=== PATIENT | male | born 1935 | race Hispanic/Latino ===

== ENCOUNTER 2018-01-01 01:47 | Observation (INO) | payer MEDICARE ==
[~2018-01-01] VITALS: Ht 167.6 cm; Wt 69.4 kg
[~2018-01-01 01:47] MED LIST: ASPI-1181 PO; DUTA0.5C17 PO; FENO145T37 PO; FLUT16H NASAL; GABA-531 PO; INSU10VI3 SQ; INSU3INS5 SQ; ISOS60TA4 PO; NITR0.4T50 SL; SIMV20TA6 PO; TIOT4MIS2 IH; TRAM50TA4 PO
[2018-01-01] MEDS ORDERED: NITROGLYCERIN 0.4 MG SL TAB SL ONE (02:00)
[2018-01-01] MEDS ORDERED: ASPIRIN 325 MG TABLET ONE (02:00)
[2018-01-01] MEDS ORDERED: HYDROXYZINE HCL 25 MG TABLET ONE (02:02)
[2018-01-01 02:21] LABS: BASOPHILS % (AUTO) 0.5 % (0.0-5.0); EOSINOPHILS % (AUTO) 4.9 % (0.0-8.0); HEMATOCRIT 35.3 % (42-54); LYMPHOCYTES % (AUTO) 41.5 % (21.0-51.0); MEAN CORPUSCULAR HEMOGLOBIN 33.9 pg (27.0-33.0); MEAN CORPUSCULAR HGB CONC 36.5 g/dL (32.0-36.0); MEAN CORPUSCULAR VOLUME 92.8 fL (79-99); MONOCYTES % (AUTO) 7.3 % (3.0-13.0); NEUTROPHILS % (AUTO) 45.8 % (40.0-77.0); PLATELET COUNT (AUTO) 130 K/uL (130-400); RED BLOOD CELL COUNT(AUTO) 3.81 MIL/uL (4.50-6.20); RED CELL DISTRIBUTION WIDTH 13.6 % (11.0-15.5); WHITE BLOOD COUNT (AUTO) 7.3 K/uL (4.8-10.8)
[2018-01-01 02:30] LABS: CREATININE 1.1 mg/dL (0.5-1.5); POTASSIUM 3.5 mmol/L (3.5-5.1)
[2018-01-01 02:34] LABS: INR 1.05 (0.85-1.15); PARTIAL THROMBOPLASTIN TIME 24.5 SEC (26.3-35.5)
[2018-01-01 02:42] LABS: B-TYPE NATRIURETIC PEPTIDE 47 pg/mL (0-100)
[2018-01-01 02:49] LABS: ALBUMIN 3.3 g/dL (3.5-5.0); BILIRUBIN,TOTAL 0.4 mg/dL (0.2-1.0); CREATINE KINASE MB 2.6 ng/mL (0.5-3.6); TOTAL PROTEIN, SERUM 7.6 g/dL (6.0-8.3)
[2018-01-01] MEDS ORDERED: ACETAMINOPHEN-CODEINE ELIXIR 5 ML UDCUP ONE (03:10)
[2018-01-01] MEDS ORDERED: DEXTROSE 50%-WATER 50 ML DISP.SYRIN IV PRN (05:45)
[2018-01-01] MEDS ORDERED: GLUCAGON 1MG KIT 1 MG ML IM PRN (05:45)
[2018-01-01] MEDS: NITROGLYCERIN 1GM/1 INCH PACKET TD SCH ×5 (06:00→23:52)
[2018-01-01] MEDS: INSULIN R NPO SSI SQ SCH ×3 (06:00→18:00)
[2018-01-01] MEDS: ASPIRIN 325 MG TABLET PO SCH (08:57)
[2018-01-01] MEDS: ENOXAPARIN SODIUM 40 MG/0.4 ML SYRINGE SQ SCH (08:58)
[2018-01-01 09:04] VITALS: BP 147/70
[2018-01-01 09:10] LABS: CREATINE KINASE MB 2.3 ng/mL (0.5-3.6); CREATINE KINASE, TOTAL 149 U/L (21-232); MYOGLOBIN 120 ng/mL (10-92); TROPONIN I < 0.04 ng/mL (0.00-0.06)
[2018-01-01] MEDS ORDERED: VIT1TABL81 PO (09:23)
[2018-01-01] MEDS ORDERED: LOSA50TA37 PO (09:23)
[2018-01-01] MEDS ORDERED: SERT25TA5 PO (09:23)
[2018-01-01] MEDS ORDERED: CYCL30DR OP (09:23)
[2018-01-01 11:29] VITALS: BP 121/59
[2018-01-01] MEDS ORDERED: TRAMADOL HCL 50 MG TABLET PO PRN (12:45)
[2018-01-01] MEDS ORDERED: NITROGLYCERIN 0.4 MG SL TAB SL SCH (12:45)
[2018-01-01] MEDS: KETOROLAC TROMETHAMINE 15MG/ML IV SCH (14:23)
[2018-01-01] MEDS: GABAPENTIN 300 MG CAPSULE PO SCH ×2 (14:24→21:35)
[2018-01-01 16:43] VITALS: BP 119/62
[2018-01-01] MEDS: IPRATROPIUM 0.5 MG/2.5 ML INH IH SCH ×2 (18:11→23:33)
[2018-01-01 19:25] VITALS: BP 138/67
[2018-01-01] MEDS ORDERED: FENOFIBRATE NANOCRYSTALLIZED 145 MG TAB PO SCH (21:00)
[2018-01-01] MEDS ORDERED: ISOSORBIDE MONO 60 MG TAB.SR PO SCH (21:00)
[2018-01-01] MEDS ORDERED: ATORVASTATIN CALCIUM 10 MG TABLET PO SCH (21:00)
[2018-01-01] MEDS ORDERED: INSULIN HUMULIN 70/30 100 UNIT/ML 3ML SQ SCH (21:00)
[2018-01-01 23:10] VITALS: BP 122/57
[2018-01-02 03:15] VITALS: BP 127/71
[2018-01-02] MEDS: INSULIN R NPO SSI SQ SCH ×3 (05:20→12:00)
[2018-01-02] MEDS: IPRATROPIUM 0.5 MG/2.5 ML INH IH SCH ×2 (06:13→11:12)
[2018-01-02] MEDS: NITROGLYCERIN 1GM/1 INCH PACKET TD SCH ×2 (07:08→12:37)
[2018-01-02] MEDS ORDERED: INSULIN HUMULIN 70/30 100 UNIT/ML 3ML SQ SCH (07:30)
[2018-01-02 07:56] VITALS: BP 108/55
[2018-01-02] MEDS ORDERED: ASPIRIN 81 MG EC TAB PO SCH (09:00)
[2018-01-02] MEDS ORDERED: FLUTICASONE PROPIONATE 50MCG/SPRAY 16 GM BOTTLE EN SCH (09:00)
[2018-01-02] MEDS ORDERED: **HM** DUTASTERIDE 0.5MG PO SCH (09:00)
[2018-01-02] MEDS ORDERED: VITAMIN B COMPLEX 1 CAPSULE PO SCH (09:00)
[2018-01-02] MEDS ORDERED: LOSARTAN 50 MG TABLET PO SCH (09:00)
[2018-01-02] MEDS ORDERED: SERTRALINE HCL 50 MG TABLET PO SCH (09:00)
[2018-01-02] MEDS ORDERED: CYCLOSPORINE OP SCH (09:00)
[2018-01-02] MEDS: KETOROLAC TROMETHAMINE 15MG/ML IV SCH (09:28)
[2018-01-02] MEDS: GABAPENTIN 300 MG CAPSULE PO SCH (09:34)
[2018-01-02] MEDS: ASPIRIN 325 MG TABLET PO SCH (09:35)
[2018-01-02] MEDS: ENOXAPARIN SODIUM 40 MG/0.4 ML SYRINGE SQ SCH (09:36)
[2018-01-02 12:16] VITALS: BP 113/56
== END 2018-01-02 15:11 | disposition home or self-care (01) ==
LOC: EDH 01:47 → EDHIP 03:14 → 4AH 07:54
PROVIDERS: ADMIT Family Medicine; ATTEND Family Medicine
DX: M94.0 Chondrocostal junction syndrome [Tietze] (principal); E11.40 Type 2 diabetes mellitus with diabetic neuropathy, unspecified; I25.10 Atherosclerotic heart disease of native coronary artery without angina pectoris; E78.5 Hyperlipidemia, unspecified; E11.51 Type 2 diabetes mellitus with diabetic peripheral angiopathy without gangrene; I10 Essential (primary) hypertension; G47.33 Obstructive sleep apnea (adult) (pediatric); J45.909 Unspecified asthma, uncomplicated; I87.2 Venous insufficiency (chronic) (peripheral); N40.0 Benign prostatic hyperplasia without lower urinary tract symptoms; Z79.4 Long term (current) use of insulin; F41.9 Anxiety disorder, unspecified; Z87.891 Personal history of nicotine dependence; Z79.82 Long term (current) use of aspirin
CPT/HCPCS: 36415; 71045; 80053; 82550 ×2; 82553 ×2; 82948 ×5; 83874 ×2; 83880; 84484 ×2; 85025; 85610; 85730; 93005; 94640 ×4; 94664; 96372 ×2; 96374; 99285; G0378 ×36; J1650 ×2; J1815 ×2; J1885

== ENCOUNTER 2019-10-06 10:50 | Inpatient (IN) | payer MEDICARE ==
[~2019-10-06] VITALS: Ht 167.6 cm; Wt 114.7 kg
[~2019-10-06 10:50] MED LIST changes: -ASPI-1181 PO; -DUTA0.5C17 PO; +DUTA0.5C18 PO; +FENO145T26 PO; -FENO145T37 PO; -FLUT16H NASAL; +GLYC10.7 IH; -INSU10VI3 SQ; -INSU3INS5 SQ; +LEVO500T2 PO; +LOSA50TA64 PO; -NITR0.4T50 SL; +SERT25TA5 PO; +SIMV-43 PO; -SIMV20TA6 PO; +TAMS-1 PO; -TIOT4MIS2 IH
[2019-10-06] MEDS ORDERED: IPRATROPIUM/ALBUTEROL SULFATE 3 ML SOLUTION IH ONE (11:20)
[2019-10-06 11:34] LABS: BASOPHILS % (AUTO) 0.6 % (0.0-5.0); EOSINOPHILS % (AUTO) 4.4 % (0.0-8.0); HEMATOCRIT 32.2 % (42-54); LYMPHOCYTES % (AUTO) 28.2 % (21.0-51.0); MEAN CORPUSCULAR HEMOGLOBIN 31.5 pg (27.0-33.0); MEAN CORPUSCULAR HGB CONC 33.9 g/dL (32.0-36.0); MEAN CORPUSCULAR VOLUME 93.1 fL (79-99); MONOCYTES % (AUTO) 7.8 % (3.0-13.0); NEUTROPHILS % (AUTO) 58.8 % (40.0-77.0); PLATELET COUNT (AUTO) 126 K/uL (130-400); RED BLOOD CELL COUNT(AUTO) 3.46 MIL/uL (4.50-6.20); RED CELL DISTRIBUTION WIDTH 12.7 % (11.0-15.5); WHITE BLOOD COUNT (AUTO) 4.8 K/uL (4.8-10.8)
[2019-10-06] MEDS ORDERED: BENZONATATE 100 MG CAPSULE PO ONE (11:40)
[2019-10-06 11:47] LABS: CREATININE 1.8 mg/dL (0.5-1.5); POTASSIUM 4.6 mmol/L (3.5-5.1)
[2019-10-06 11:52] LABS: ALBUMIN 2.7 g/dL (3.5-5.0); BILIRUBIN,TOTAL 0.3 mg/dL (0.2-1.0); TOTAL PROTEIN, SERUM 6.6 g/dL (6.0-8.3)
[2019-10-06 12:02] LABS: B-TYPE NATRIURETIC PEPTIDE 52 pg/mL (0-100)
[2019-10-06 12:10] LABS: INR 1.04 (0.85-1.15); PARTIAL THROMBOPLASTIN TIME 24.7 SEC (26.3-35.5); PROTHROMBIN TIME 11.2 SEC (9.6-11.6)
[2019-10-06] MEDS ORDERED: ONDANSETRON HCL 4 MG/2 ML VIAL IVP PRN (16:15)
[2019-10-06] MEDS ORDERED: HYDRALAZINE HCL 20 MG/ML VIAL IV PRN (16:15)
[2019-10-06] MEDS ORDERED: METHYLPREDNISOLONE SOD SUCC 40MG/ML 1ML IVP SCH ×2 (16:15→21:00)
[2019-10-06] MEDS ORDERED: LACTULOSE 20 GM/30 ML UDCUP PO PRN (16:15)
[2019-10-06] MEDS ORDERED: SODIUM CHLORIDE 0.9% 1000ML 1,000 ML IV SCH (16:15)
[2019-10-06] MEDS ORDERED: ACETAMINOPHEN-CODEINE 300/30MG TAB PO PRN (16:15)
[2019-10-06] MEDS ORDERED: ACETAMINOPHEN 325 MG TAB PO PRN (16:15)
[2019-10-06] MEDS ORDERED: GLUCAGON 1MG KIT 1 MG ML IM PRN (16:30)
[2019-10-06] MEDS ORDERED: LIDOCAINE HCL-MPF 1% 2ML VIAL IV PRN (16:30)
[2019-10-06] MEDS ORDERED: DEXTROSE 50%-WATER 50 ML DISP.SYRIN IV PRN (16:30)
[2019-10-06] MEDS ORDERED: POTASSIUM CHLORIDE 20 MEQ ERTAB PO PRN (16:30)
[2019-10-06] MEDS ORDERED: POTASSIUM CHLORIDE 20MEQ/100ML 100 ML IV PRN (16:30)
[2019-10-06] MEDS ORDERED: MAGNESIUM 2GM PREMIX 50ML 50 ML IV PRN (16:30)
[2019-10-06] MEDS ORDERED: POTASSIUM CHLORIDE 10% ELIXIR 20 MEQ/15 ML UDCUP PO PRN (16:30)
[2019-10-06] MEDS ORDERED: SODIUM CHLORIDE 0.9% 1000ML 1,000 ML IV ONE (18:20)
[2019-10-06] MEDS ORDERED: METHYLPREDNISOLONE SOD SUCC 40MG/ML 1ML ONE (18:23)
[2019-10-06] MEDS ORDERED: INSULIN HUMULIN R 100 UNIT/ML 3ML ONE (21:58)
[2019-10-06] MEDS ORDERED: ACETAMINOPHEN-CODEINE 300/30MG TAB ONE (23:12)
[2019-10-07] MEDS ORDERED: METHYLPREDNISOLONE SOD SUCC 40MG/ML 1ML ONE (03:33)
[2019-10-07] MEDS: IPRATROPIUM/ALBUTEROL SULFATE 3 ML SOLUTION IH PRN ×2 (05:17→19:05)
[2019-10-07 06:13] LABS: ALBUMIN 2.9 g/dL (3.5-5.0); BILIRUBIN,TOTAL 0.4 mg/dL (0.2-1.0); CREATININE 1.7 mg/dL (0.5-1.5); PHOSPHORUS 2.8 mg/dL (2.5-4.9); TOTAL PROTEIN, SERUM 7.5 g/dL (6.0-8.3)
[2019-10-07 06:49] LABS: POTASSIUM 5.4 mmol/L (3.5-5.1)
[2019-10-07] MEDS ORDERED: PANTOPRAZOLE 40 MG/VIAL IVP SCH (09:00)
[2019-10-07] MEDS ORDERED: HEPARIN SODIUM 5000UNIT/ML 1ML VIAL SQ SCH (09:00)
[2019-10-07] MEDS ORDERED: PANTOPRAZOLE SODIUM 40 MG TABLET.DR ONE (09:35)
[2019-10-07] MEDS ORDERED: HEPARIN SODIUM 5000UNIT/ML 1ML VIAL ONE (09:35)
[2019-10-07] MEDS ORDERED: INSULIN HUMULIN R 100 UNIT/ML 3ML ONE (11:48)
[2019-10-07] MEDS ORDERED: ASPI-1197 PO (11:51)
--- NOTE | 2019-10-07 14:00 | NUR ---
ADMISSION PT RECEIVED FROM ER VIA BED. A/O X 3. SOB ON EXERTION. UNABLE TO LIS FLAT. O2 NC @ 2L. DENIES CHEST PAIN OR DISCOMFORT. TELE: SR. DENIES N/V AND/OR DIARRHEA. (+) EDEMA BLE. PT INFORMED TO MAINTAIN BEDREST UNTIL EVAL BY PHYS THERAPY DONE. PT HAS HX OF WEARING BILATERAL ANKLE BRACES. FAMILY @ BEDSIDE. ORIENTED TO RM. INSTRUCTED TO CALL FOR ASSISTANCE. CALL NELIDA W/IN REACH.
[2019-10-07 14:04] LABS: HEMOGLOBIN A1C 8.8 % (4.0-6.0)
[2019-10-07 14:09] VITALS: BP 155/59
[2019-10-07] MEDS: INSULIN HUMULIN R 100 UNIT/ML 3ML SQ SCH ×3 (14:21→21:21)
[2019-10-07] MEDS: HEPARIN SODIUM 5000UNIT/ML 1ML VIAL SQ SCH ×2 (15:00→21:19)
[2019-10-07] MEDS ORDERED: FUROSEMIDE 10 MG/ML 4ML VIAL IV SCH (16:05)
[2019-10-07 16:21] VITALS: BP 156/77
--- NOTE | 2019-10-07 17:26 | NUR ---
INITIAL Patient lives with spouse. Emergency contact is son, Sherman Garcia, [phone]. No home health but does have [facility] but does not remember the name of the agency or number of hours he receives. SW attempted to contact family to obtain additional information but was unsuccessful. DME: cane, walker with seat, BPM, glucometer (uses insulin). Patient states he is able to complete ADL's independently and drives. PCP is Dr. Gallo Langford. Pharmacy is [facility] located on [address] in [place]. DCP is home. Addendum: 10/07/19 at 1729 by RAF EMANUEL Amended: Links added.
[2019-10-07 19:46] VITALS: BP 154/75
[2019-10-07] MEDS ORDERED: INSULIN GLARGINE 100 UNITS/ML 10 ML VIAL SQ SCH (21:00)
[2019-10-08] VITALS (7 sets, daily range): BP systolic 126–161; BP diastolic 53–73
[2019-10-08 04:22] LABS: BASOPHILS % (AUTO) 0.3 % (0.0-5.0); EOSINOPHILS % (AUTO) 0.7 % (0.0-8.0); HEMATOCRIT 33.6 % (42-54); LYMPHOCYTES % (AUTO) 19.9 % (21.0-51.0); MEAN CORPUSCULAR HEMOGLOBIN 30.6 pg (27.0-33.0); MEAN CORPUSCULAR VOLUME 92.6 fL (79-99); MONOCYTES % (AUTO) 6.9 % (3.0-13.0); NEUTROPHILS % (AUTO) 71.9 % (40.0-77.0); PLATELET COUNT (AUTO) 121 K/uL (130-400); RED BLOOD CELL COUNT(AUTO) 3.63 MIL/uL (4.50-6.20); RED CELL DISTRIBUTION WIDTH 12.5 % (11.0-15.5); WHITE BLOOD COUNT (AUTO) 7.4 K/uL (4.8-10.8)
[2019-10-08 04:32] LABS: CREATININE 1.3 mg/dL (0.5-1.5); POTASSIUM 4.4 mmol/L (3.5-5.1)
[2019-10-08] MEDS: INSULIN HUMULIN R 100 UNIT/ML 3ML SQ SCH ×4 (05:53→21:13)
[2019-10-08] MEDS: IPRATROPIUM/ALBUTEROL SULFATE 3 ML SOLUTION IH PRN ×2 (06:27→18:54)
[2019-10-08] MEDS: PREDNISONE 10 MG TABLET PO SCH (07:47)
[2019-10-08] MEDS: HEPARIN SODIUM 5000UNIT/ML 1ML VIAL SQ SCH ×2 (07:49→20:28)
[2019-10-08] MEDS: PANTOPRAZOLE SODIUM 40 MG TABLET.DR PO SCH (07:51)
--- NOTE | 2019-10-08 08:00 | NUR ---
AM ASSESSMENT PT LAYING IN BED, HOB ELEVATED 30 DEGREES, WATCHING TV. FAMILY @ BEDSIDE. A/O X 3. SOB ON EXERTION. NO DISTRESS NOTED. 02 NC @ 2L. DENIES CHEST PAIN OR DISCOMFORT. DENIES PALPITATIONS. TELE: SR. DENIES N/V AND/OR DIARRHEA. UP W/ASSISTANCE. & USE OF WALKER. WALKER @ BEDSIDE. INSTRUCTED TO CALL FOR ASSISTANCE. CALL NELIDA W/IN REACH.
[2019-10-08] MEDS ORDERED: INSULIN GLARGINE 100 UNITS/ML 10 ML VIAL SQ SCH (21:00)
[2019-10-09 04:23] VITALS: BP 116/53
[2019-10-09 04:50] LABS: HEMATOCRIT 36.4 % (42-54); MEAN CORPUSCULAR HEMOGLOBIN 31.2 pg (27.0-33.0); MEAN CORPUSCULAR HGB CONC 33.8 g/dL (32.0-36.0); MEAN CORPUSCULAR VOLUME 92.4 fL (79-99); PLATELET COUNT (AUTO) 131 K/uL (130-400); RED BLOOD CELL COUNT(AUTO) 3.94 MIL/uL (4.50-6.20); RED CELL DISTRIBUTION WIDTH 12.4 % (11.0-15.5); WHITE BLOOD COUNT (AUTO) 6.6 K/uL (4.8-10.8)
[2019-10-09 05:15] LABS: CREATININE 1.3 mg/dL (0.5-1.5); POTASSIUM 4.3 mmol/L (3.5-5.1)
[2019-10-09] MEDS: INSULIN HUMULIN R 100 UNIT/ML 3ML SQ SCH ×2 (05:56→11:41)
[2019-10-09 07:00] VITALS: BP 122/42
[2019-10-09] MEDS: IPRATROPIUM/ALBUTEROL SULFATE 3 ML SOLUTION IH PRN (07:01)
--- NOTE | 2019-10-09 07:45 | NUR ---
AM ASSESSMENT PT SITTING IN BED, RESTING. FAMILY @ BEDSIDE. A/O X 3. SOB ON EXERTION. NO DISTRESS NOTED. DENIES CHEST PAIN OR DISCOMFORT. DENIES PALPITATIONS. TELE: SR. DENIES N/V AND/OR DIARRHEA. UP W/WALKER & ASSISTANCE. PT PENDING TO DC HOME TODAY. INSTRUCTED TO CALL FOR ASSISTANCE. CALL NELIDA W/IN REACH.
[2019-10-09] MEDS ORDERED: PRED20TA3 PO (08:23)
[2019-10-09] MEDS: HEPARIN SODIUM 5000UNIT/ML 1ML VIAL SQ SCH (08:24)
[2019-10-09] MEDS: PREDNISONE 10 MG TABLET PO SCH (08:24)
[2019-10-09] MEDS: PANTOPRAZOLE SODIUM 40 MG TABLET.DR PO SCH (08:25)
[2019-10-09 11:00] VITALS: BP 140/64
--- NOTE | 2019-10-09 14:30 | NUR ---
DISCHARGE PT TO BE DC HOME TODAY. TELE RODRIGO REMOVED @ THIS TIME. IV DC'D @ THIS TIME.
--- NOTE | 2019-10-09 15:27 | NUR ---
DISCHARGE DISCHARGE INSTRUCTIONS GIVEN TO PT & FAMILY BY Paulina JONES RN.
--- NOTE | 2019-10-09 15:45 | NUR ---
DISCHARGE PT TAKEN TO PRIVATE VEHICLE VIA WC BY MYSELF, Calvin DESAI RN, ACCOMPANIED BY GRANDSON. NO DISTRESS NOTED.
== END 2019-10-09 15:45 | disposition home or self-care (01) | DRG 191 ==
LOC: EDH 10:50 → EDHIP 12:45 → OBSVTOIN 12:45 → EDHIP 10-07 10:16 → 2DH 10-07 13:40
PROVIDERS: ADMIT Internal Medicine Critical Care Medicine; ATTEND Internal Medicine Critical Care Medicine
PROC: 5A09357 Assistance with Respiratory Ventilation, Less than 24 Consecutive Hours, Continuous Positive Airway Pressure (ICD-10-PCS; principal; 2019-10-07)
PROC: 5A09357 Assistance with Respiratory Ventilation, Less than 24 Consecutive Hours, Continuous Positive Airway Pressure (ICD-10-PCS; 2019-10-08)
PROC: 5A09357 Assistance with Respiratory Ventilation, Less than 24 Consecutive Hours, Continuous Positive Airway Pressure (ICD-10-PCS; 2019-10-09)
DX: J44.1 Chronic obstructive pulmonary disease with (acute) exacerbation (principal); N17.9 Acute kidney failure, unspecified; E44.0 Moderate protein-calorie malnutrition; Z68.41 Body mass index [BMI] 40.0-44.9, adult; R60.0 Localized edema; N18.9 Chronic kidney disease, unspecified; E11.22 Type 2 diabetes mellitus with diabetic chronic kidney disease; I12.9 Hypertensive chronic kidney disease with stage 1 through stage 4 chronic kidney disease, or unspecified chronic kidney disease; E66.01 Morbid (severe) obesity due to excess calories; E78.5 Hyperlipidemia, unspecified; E87.5 Hyperkalemia; R09.1 Pleurisy; M19.90 Unspecified osteoarthritis, unspecified site; M21.372 Foot drop, left foot; Z79.82 Long term (current) use of aspirin; Z87.891 Personal history of nicotine dependence
CPT/HCPCS: 36415; 71045; 71250; 80048; 80053; 82550; 82948; 83036; 83735; 83880; 84100; 84132; 84484; 85025; 85027; 85610; 85730; 87071; 87077; 87186; 87205; 87804; 93005; 93970; 94640; 94660; 94664; 94760; 97039; C9113; G0378; J1644; J1815; J1940; J2920; J7030; J7512

== ENCOUNTER → 2020-01-28 | Outpatient (CLI) | payer MEDICARE | END | disposition home or self-care (01) | LOC: SHCH 08:31 | PROVIDERS: ATTEND Internal Medicine Cardiovascular Disease | DX: I87.2 Venous insufficiency (chronic) (peripheral) (principal) ==

== ENCOUNTER 2020-02-10 20:20 | Inpatient (IN) | payer MEDICARE ==
[~2020-02-10] VITALS: Ht 167.6 cm; Wt 105.2 kg
[~2020-02-10 20:20] MED LIST changes: +ASPI-1197 PO; -LEVO500T2 PO; +PRED20TA3 PO; -TRAM50TA4 PO
[2020-02-10] MEDS ORDERED: SODIUM CHLORIDE 0.9% 1000ML 1,000 ML IV ONE (21:50)
[2020-02-10] MEDS ORDERED: ONDANSETRON HCL 4 MG/2 ML VIAL ONE (21:52)
[2020-02-10] MEDS ORDERED: ACETAMINOPHEN EXTRA STRENGTH 500 MG TABLET ONE (21:52)
[2020-02-10 22:03] LABS: HEMATOCRIT 31.1 % (42-54); LYMPHOCYTES % (AUTO) 16.3 % (21.0-51.0); MEAN CORPUSCULAR HEMOGLOBIN 32.2 pg (27.0-33.0); MEAN CORPUSCULAR HGB CONC 35.4 g/dL (32.0-36.0); MEAN CORPUSCULAR VOLUME 90.9 fL (79-99); MONOCYTES % (AUTO) 10.4 % (3.0-13.0); NEUTROPHILS % (AUTO) 72.6 % (40.0-77.0); PLATELET COUNT (AUTO) 120 K/uL (130-400); RED BLOOD CELL COUNT(AUTO) 3.42 MIL/uL (4.50-6.20); RED CELL DISTRIBUTION WIDTH 12.3 % (11.0-15.5); WHITE BLOOD COUNT (AUTO) 3.1 K/uL (4.8-10.8)
[2020-02-10 22:17] LABS: CARBON DIOXIDE 22 mmol/L (21-32); CHLORIDE 98 mmol/L (101-111); CREATININE 1.8 mg/dL (0.5-1.5); GLOMERULAR FILTR. RATE CALC 39 mL/min (>60); GLUCOSE,RANDOM 282 mg/dL (70-105); INR 1.04 (0.85-1.15); PARTIAL THROMBOPLASTIN TIME 31.3 SEC (26.3-35.5); POTASSIUM 3.8 mmol/L (3.5-5.1); PROTHROMBIN TIME 11.2 SEC (9.6-11.6); SODIUM SERUM 135 mmol/L (136-145); UREA NITROGEN, BLOOD 38 mg/dL (7-18)
[2020-02-10 22:37] LABS: ALANINE AMINOTRANSFERASE 29 U/L (12-78); ALBUMIN 2.5 g/dL (3.5-5.0); ASPARTATE AMINOTRANSFERASE 62 U/L (10-37); BILIRUBIN,TOTAL 0.6 mg/dL (0.2-1.0); CREATINE KINASE, TOTAL 333 U/L (21-232); MYOGLOBIN 368 ng/mL (10-92); TOTAL PROTEIN, SERUM 7.1 g/dL (6.0-8.3); TROPONIN I < 0.04 ng/mL (0.00-0.06)
[2020-02-10] MEDS ORDERED: CEFTRIAXONE SODIUM 1 GM ONE (23:28)
[2020-02-10] MEDS ORDERED: AZITHROMYCIN 500MG+NS 250ML 250 ML IV ONE (23:28)
[2020-02-10] MEDS ORDERED: METHYLPREDNISOLONE SOD SUCC 40MG/ML 1ML IVP SCH (23:30)
[2020-02-10] MEDS: ENOXAPARIN SODIUM 30 MG/0.3 ML SQ SCH (23:45)
[2020-02-11] MEDS ORDERED: ENOXAPARIN SODIUM 30 MG/0.3 ML SQ ONE ×2 (04:26→20:03)
[2020-02-11] MEDS ORDERED: METHYLPREDNISOLONE SOD SUCC 40MG/ML 1ML ONE (04:26)
[2020-02-11 05:00] LABS: HEMATOCRIT 30.6 % (42-54); LYMPHOCYTES % (AUTO) 25.1 % (21.0-51.0); MEAN CORPUSCULAR HEMOGLOBIN 31.5 pg (27.0-33.0); MEAN CORPUSCULAR HGB CONC 34.3 g/dL (32.0-36.0); MEAN CORPUSCULAR VOLUME 91.9 fL (79-99); MONOCYTES % (AUTO) 8.9 % (3.0-13.0); NEUTROPHILS % (AUTO) 65.3 % (40.0-77.0); PLATELET COUNT (AUTO) 112 K/uL (130-400); RED BLOOD CELL COUNT(AUTO) 3.33 MIL/uL (4.50-6.20); RED CELL DISTRIBUTION WIDTH 12.5 % (11.0-15.5)
[2020-02-11 05:02] LABS: CREATININE 1.8 mg/dL (0.5-1.5); POTASSIUM 4.3 mmol/L (3.5-5.1)
[2020-02-11 05:03] LABS: ABG BASE EXCESS -2.5 mmol/L (-2.0-3.0); ABG HCO3 21.6 mmol/L (21.0-28.0); ABG PCO2 36 mmHg (35-48)
[2020-02-11] MEDS: AZITHROMYCIN 500MG+NS 250ML 250 ML IV SCH (09:00)
--- NOTE | 2020-02-11 13:14 | NUR ---
CHART CHECK COMPLETED. Pt IS AN 84 Y.O. MALE ADMITTED SECONDARY TO ACUTE RESPIRATORY FAILURE, HYPOXIA, AND PUI COVID. Pt WITH PAST MEDICAL HISTORY SIGNIFICANT FOR DM, HYPERTENSION, ARTHRITIS, GAIT INSTABILITY. Pt CURRENTLY WITH NO DIET ORDER. PLEASE REQUEST FORMAL SKILLED SPEECH/SWALLOW EVALUATION IF Pt PRESENTS WITH +S/S OF ASPIRATION OF DIFFICULTY SWALLOWING. Addendum: 02/11/20 at 1317 by JONG STYLES [facility] Amended: Links added.
[2020-02-11] MEDS ORDERED: HYDRALAZINE HCL 20 MG/ML VIAL IV PRN (16:30)
[2020-02-11] MEDS ORDERED: ACETAMINOPHEN 325 MG TAB PO PRN ×2 (16:30)
[2020-02-11] MEDS ORDERED: ERGOCALCIFEROL (VITAMIN D2) 50,000 UNIT CAPSULE PO ONE (16:45)
[2020-02-11 17:59] LABS: APPEARANCE,URINE Clear (CLEAR); BILIRUBIN,URINE Negative (NEGATIVE); COLOR,URINE Yellow (YELLOW); GLUCOSE, URINE (UA) >=1000 mg/dL (NEGATIVE); KETONES,URINE Trace mg/dL (NEGATIVE); LEUKOCYTE ESTERASE ,URINE Negative (NEGATIVE); NITRATE,URINE Negative (NEGATIVE); OCCULT BLOOD,URINE Moderate (NEGATIVE); PROTEIN,URINE 300 mg/dL (NEGATIVE)
[2020-02-11 18:13] LABS: BACTERIA,URINE Rare /HPF (None Seen); MUCUS,URINE Few LPF (None Seen); SQUAMOUS EPITHELIAL CELL,UR Few /HPF (0-2); WBC,URINE 0-1 /HPF (0-1)
[2020-02-11] MEDS: INSULIN GLARGINE 100 UNITS/ML 10 ML VIAL SQ SCH (21:00)
[2020-02-11] MEDS: ENOXAPARIN SODIUM 30 MG/0.3 ML SQ SCH (21:00)
[2020-02-11] MEDS: ISOSORBIDE MONO 60 MG TAB.SR PO SCH (21:00)
[2020-02-11] MEDS: FENOFIBRATE NANOCRYSTALLIZED 145 MG TAB PO SCH (21:00)
[2020-02-12 04:43] LABS: BASOPHILS % (AUTO) 0.2 % (0.0-5.0); HEMATOCRIT 34.5 % (42-54); LYMPHOCYTES % (AUTO) 12.6 % (21.0-51.0); MEAN CORPUSCULAR HEMOGLOBIN 31.7 pg (27.0-33.0); MEAN CORPUSCULAR HGB CONC 34.8 g/dL (32.0-36.0); MEAN CORPUSCULAR VOLUME 91.3 fL (79-99); MONOCYTES % (AUTO) 7.7 % (3.0-13.0); NEUTROPHILS % (AUTO) 78.9 % (40.0-77.0); PLATELET COUNT (AUTO) 149 K/uL (130-400); RED BLOOD CELL COUNT(AUTO) 3.78 MIL/uL (4.50-6.20); RED CELL DISTRIBUTION WIDTH 12.2 % (11.0-15.5); WHITE BLOOD COUNT (AUTO) 4.9 K/uL (4.8-10.8)
[2020-02-12 04:46] LABS: FIBRINOGEN 539 mg/dL (180-350)
[2020-02-12 06:11] LABS: D-DIMER 591 ng/mL (0-500)
[2020-02-12 07:14] LABS: CREATININE 1.5 mg/dL (0.5-1.5); MAGNESIUM 2.3 mg/dL (1.80-2.40); POTASSIUM 4.3 mmol/L (3.5-5.1)
[2020-02-12 07:35] LABS: CRP QUANTITATIVE 201.1 mg/L (0.00-9.0)
[2020-02-12] MEDS ORDERED: ASCORBIC ACID 500 MG TAB ONE (07:54)
[2020-02-12] MEDS ORDERED: ASPIRIN 81MG TAB.CHEW ONE (07:54)
[2020-02-12] MEDS ORDERED: SIMVASTATIN 10 MG TABLET ONE (07:55)
[2020-02-12] MEDS ORDERED: DEXAMETHASONE SOD PHOSPHATE 4 MG/ML 1ML VIAL ONE (07:55)
[2020-02-12] MEDS ORDERED: TAMSULOSIN HCL 0.4 MG CAP.ER.24H ONE (07:55)
[2020-02-12] MEDS ORDERED: ZINC SULFATE 220 CAPSULE ONE (07:55)
[2020-02-12] MEDS ORDERED: GABAPENTIN 300 MG CAPSULE ONE (07:56)
[2020-02-12] MEDS ORDERED: AZITHROMYCIN 500MG+NS 250ML 250 ML IV ONE (07:56)
[2020-02-12] MEDS ORDERED: LOSARTAN 50 MG TABLET ONE (07:56)
[2020-02-12] MEDS ORDERED: SERTRALINE HCL 50 MG TABLET ONE (07:56)
[2020-02-12] MEDS ORDERED: FAMOTIDINE/PF 20 MG/2 ML VIAL IV ONE (07:57)
[2020-02-12] MEDS: SERTRALINE HCL 50 MG TABLET PO SCH (09:00)
[2020-02-12] MEDS: ASCORBIC ACID 500 MG TAB PO SCH (09:00)
[2020-02-12] MEDS: (Dutasteride 0.5 MG) PO SCH (09:00)
[2020-02-12] MEDS: ASPIRIN 81MG TAB.CHEW PO SCH (09:00)
[2020-02-12] MEDS: GLYCOPYRROLATE IH SCH ×2 (09:00→21:00)
[2020-02-12] MEDS: DEXAMETHASONE SOD PHOSPHATE 4 MG/ML 1ML VIAL IVP SCH (09:00)
[2020-02-12] MEDS: ISOSORBIDE MONO 60 MG TAB.SR PO SCH ×2 (09:00→21:00)
[2020-02-12] MEDS: AZITHROMYCIN 500MG+NS 250ML 250 ML IV SCH (09:00)
[2020-02-12] MEDS: FAMOTIDINE 20MG TAB 20 MG TAB PO SCH (09:00)
[2020-02-12] MEDS: FORMOTEROL FUM IH SCH ×2 (09:00→21:00)
[2020-02-12] MEDS: TAMSULOSIN HCL 0.4 MG CAP.ER.24H PO SCH (09:00)
[2020-02-12] MEDS: GABAPENTIN 300 MG CAPSULE PO SCH (09:00)
[2020-02-12] MEDS: SIMVASTATIN 20 MG TABLET PO SCH (09:00)
[2020-02-12] MEDS: LOSARTAN 50 MG TABLET PO SCH (09:00)
[2020-02-12] MEDS: ZINC SULFATE 220 CAPSULE PO SCH (09:00)
--- NOTE | 2020-02-12 13:28 | NUR ---
SPOKE TO SON FOR DC PLANNING; STATES PATIENT LIVES WITH SPOUSE MYRANDA JONES, IS INDPENDENT, NO DME, EXCEPT A SHOWER CHAIR, DAUGHTER LANE ON FACE SHEET IS PROVIDER AND DRIVES PTS TO APPOINTMENT ETC, RECENT DECLINE IN FUNCTION; DCP HOME , CM TO FOLLOW NOTE: DAUGHTER CALLED BACK AND CONFIRMED PT'S FUNCTON AND DECLINE. Addendum: 02/13/20 at 1458 by KASEY BRADY RN CM Amended: Links added.
--- NOTE | 2020-02-12 16:40 | NUR ---
0019 RECEIVED TELEPHONE CONSENT FROM STERLING ENOCH JONES [phone].FAXED IM LETTER TO [phone]
[2020-02-12] MEDS: ENOXAPARIN SODIUM 30 MG/0.3 ML SQ SCH (21:00)
[2020-02-12] MEDS: INSULIN GLARGINE 100 UNITS/ML 10 ML VIAL SQ SCH (21:00)
[2020-02-12] MEDS: FENOFIBRATE NANOCRYSTALLIZED 145 MG TAB PO SCH (21:00)
[2020-02-12] MEDS ORDERED: ENOXAPARIN SODIUM 30 MG/0.3 ML SQ ONE (21:26)
[2020-02-13] MEDS ORDERED: ASCORBIC ACID 500 MG TAB ONE (07:40)
[2020-02-13] MEDS ORDERED: ASPIRIN 81MG TAB.CHEW ONE (07:40)
[2020-02-13] MEDS ORDERED: SIMVASTATIN 10 MG TABLET ONE (07:43)
[2020-02-13] MEDS ORDERED: ISOSORBIDE MONO 30MG TAB SR PO ONE (07:43)
[2020-02-13] MEDS ORDERED: TAMSULOSIN HCL 0.4 MG CAP.ER.24H ONE (07:44)
[2020-02-13] MEDS ORDERED: ZINC SULFATE 220 CAPSULE ONE (07:44)
[2020-02-13] MEDS ORDERED: SERTRALINE HCL 50 MG TABLET ONE (07:44)
[2020-02-13] MEDS ORDERED: DEXAMETHASONE SOD PHOSPHATE 4 MG/ML 5ML VIAL ONE (07:44)
[2020-02-13] MEDS ORDERED: AZITHROMYCIN 500MG+NS 250ML 250 ML IV ONE (07:44)
[2020-02-13] MEDS ORDERED: GABAPENTIN 300 MG CAPSULE ONE (07:45)
[2020-02-13] MEDS ORDERED: LOSARTAN 50 MG TABLET ONE (07:45)
[2020-02-13] MEDS ORDERED: FAMOTIDINE/PF 20 MG/2 ML VIAL IV ONE (07:46)
[2020-02-13] MEDS: GLYCOPYRROLATE IH SCH ×2 (09:00→21:00)
[2020-02-13] MEDS: LOSARTAN 50 MG TABLET PO SCH (09:00)
[2020-02-13] MEDS: SERTRALINE HCL 50 MG TABLET PO SCH (09:00)
[2020-02-13] MEDS: FAMOTIDINE 20MG TAB 20 MG TAB PO SCH (09:00)
[2020-02-13] MEDS: AZITHROMYCIN 500MG+NS 250ML 250 ML IV SCH (09:00)
[2020-02-13] MEDS: ASCORBIC ACID 500 MG TAB PO SCH (09:00)
[2020-02-13] MEDS: FORMOTEROL FUM IH SCH ×2 (09:00→21:00)
[2020-02-13] MEDS: ZINC SULFATE 220 CAPSULE PO SCH (09:00)
[2020-02-13] MEDS: GABAPENTIN 300 MG CAPSULE PO SCH (09:00)
[2020-02-13] MEDS: DEXAMETHASONE SOD PHOSPHATE 4 MG/ML 1ML VIAL IVP SCH (09:00)
[2020-02-13] MEDS: ISOSORBIDE MONO 60 MG TAB.SR PO SCH ×2 (09:00→22:04)
[2020-02-13] MEDS: SIMVASTATIN 20 MG TABLET PO SCH (09:00)
[2020-02-13] MEDS: ASPIRIN 81MG TAB.CHEW PO SCH (09:00)
[2020-02-13] MEDS: (Dutasteride 0.5 MG) PO SCH (09:00)
[2020-02-13] MEDS: TAMSULOSIN HCL 0.4 MG CAP.ER.24H PO SCH (09:00)
[2020-02-13] MEDS ORDERED: ACETAMINOPHEN EXTRA STRENGTH 500 MG TABLET ONE (11:31)
[2020-02-13 16:40] VITALS: BP 143/63
[2020-02-13] MEDS: HUMALOG PO SS2 SQ SCH ×2 (17:02→22:07)
[2020-02-13 20:00] VITALS: BP 141/69
[2020-02-13] MEDS: FENOFIBRATE NANOCRYSTALLIZED 145 MG TAB PO SCH (22:03)
[2020-02-13] MEDS: ENOXAPARIN SODIUM 30 MG/0.3 ML SQ SCH (22:04)
[2020-02-13] MEDS: INSULIN GLARGINE 100 UNITS/ML 10 ML VIAL SQ SCH (22:06)
--- NOTE | 2020-02-13 22:30 | NUR ---
ORDER FOR ROBITUSSIN PRN Q6HR FOR COUGH. AND ALBUTEROL MDI Q6HRS PRN FOR COUGH. PT HAD DIFFICULTY TAKING MEDICATIONS DUE TO COUGH. ELEVATED BP.
[2020-02-13] MEDS ORDERED: ALBUTEROL SULFATE/IPRATROPIUM 103/18 MCG/PUFF 14.7 GM INHR IH PRN (23:30)
[2020-02-14] VITALS: BP 115/59
[2020-02-14] MEDS: GUAIFENESIN-DM 200/20 MG 10 ML PO PRN ×2 (01:01→18:46)
[2020-02-14 04:00] VITALS: BP 118/67
[2020-02-14 04:59] LABS: ABG BASE EXCESS 0.9 mmol/L (-2.0-3.0); ABG HCO3 24.4 mmol/L (21.0-28.0); ABG OXYGEN SATURATION 88.7 % (95.0-99.0); ABG PCO2 36 mmHg (35-48)
[2020-02-14] MEDS: HUMALOG PO SS2 SQ SCH ×4 (06:19→20:20)
[2020-02-14 06:22] LABS: BASOPHILS % (AUTO) 0.2 % (0.0-5.0); HEMATOCRIT 31.2 % (42-54); LYMPHOCYTES % (AUTO) 6.2 % (21.0-51.0); MEAN CORPUSCULAR HEMOGLOBIN 31.1 pg (27.0-33.0); MEAN CORPUSCULAR HGB CONC 33.7 g/dL (32.0-36.0); MEAN CORPUSCULAR VOLUME 92.3 fL (79-99); MONOCYTES % (AUTO) 6.9 % (3.0-13.0); NEUTROPHILS % (AUTO) 85.7 % (40.0-77.0); PLATELET COUNT (AUTO) 167 K/uL (130-400); RED BLOOD CELL COUNT(AUTO) 3.38 MIL/uL (4.50-6.20); RED CELL DISTRIBUTION WIDTH 12.4 % (11.0-15.5); WHITE BLOOD COUNT (AUTO) 6.1 K/uL (4.8-10.8)
[2020-02-14 07:13] LABS: ALBUMIN 2.3 g/dL (3.5-5.0); BILIRUBIN,TOTAL 0.8 mg/dL (0.2-1.0); CREATININE 1.3 mg/dL (0.5-1.5); MAGNESIUM 2.5 mg/dL (1.80-2.40); PHOSPHORUS 3.1 mg/dL (2.5-4.9); POTASSIUM 4.3 mmol/L (3.5-5.1); TOTAL PROTEIN, SERUM 6.6 g/dL (6.0-8.3)
[2020-02-14] MEDS: FORMOTEROL FUM IH SCH ×2 (09:00→20:21)
[2020-02-14] MEDS: GLYCOPYRROLATE IH SCH ×2 (09:00→20:21)
[2020-02-14] MEDS: GABAPENTIN 300 MG CAPSULE PO SCH (09:04)
[2020-02-14] MEDS: ASPIRIN 81MG TAB.CHEW PO SCH (09:04)
[2020-02-14] MEDS: SIMVASTATIN 20 MG TABLET PO SCH (09:05)
[2020-02-14] MEDS: ISOSORBIDE MONO 60 MG TAB.SR PO SCH ×2 (09:05→20:16)
[2020-02-14] MEDS: FAMOTIDINE 20MG TAB 20 MG TAB PO SCH (09:05)
[2020-02-14] MEDS: ASCORBIC ACID 500 MG TAB PO SCH (09:05)
[2020-02-14] MEDS: TAMSULOSIN HCL 0.4 MG CAP.ER.24H PO SCH (09:06)
[2020-02-14] MEDS: LOSARTAN 50 MG TABLET PO SCH (09:06)
[2020-02-14] MEDS: SERTRALINE HCL 50 MG TABLET PO SCH (09:06)
[2020-02-14] MEDS: ZINC SULFATE 220 CAPSULE PO SCH (09:06)
[2020-02-14] MEDS: AZITHROMYCIN 500MG+NS 250ML 250 ML IV SCH (09:07)
[2020-02-14] MEDS: DEXAMETHASONE SOD PHOSPHATE 4 MG/ML 1ML VIAL IVP SCH (09:07)
[2020-02-14 11:58] VITALS: BP 139/53
--- NOTE | 2020-02-14 13:51 | NUR ---
PT AWAKE AND RESPONSIVE APPROPRIATELY, LUNGS DIMINISHED ON 15L OF OXYGEN ON A NRB SPO2 100%. PT MOSTLY COMFORTABLE, INTERMITTENT EPISODES OF A HACKING PRODUCTIVE COUGH OBSERVED. SPOKE WITH SON REGARDING PT STATUS. PT ALSO ABLE TO SPEAK WITH SON HIMSELF.
[2020-02-14 16:06] VITALS: BP 127/54
[2020-02-14] MEDS: FENOFIBRATE NANOCRYSTALLIZED 145 MG TAB PO SCH (20:16)
[2020-02-14] MEDS: FINASTERIDE 5 MG TABLET PO SCH (20:16)
[2020-02-14] MEDS: ENOXAPARIN SODIUM 30 MG/0.3 ML SQ SCH (20:18)
[2020-02-14] MEDS: INSULIN GLARGINE 100 UNITS/ML 10 ML VIAL SQ SCH (20:18)
[2020-02-14 22:00] VITALS: BP 127/54
[2020-02-15] VITALS: BP 158/74
[2020-02-15 04:20] VITALS: BP_SYST 116; BP_DIAS 40; BP_DIAS 60
[2020-02-15] MEDS: HUMALOG PO SS2 SQ SCH ×5 (05:59→21:52)
[2020-02-15 06:26] LABS: HEMATOCRIT 32.6 % (42-54); LYMPHOCYTES % (AUTO) 6.7 % (21.0-51.0); MEAN CORPUSCULAR HEMOGLOBIN 31.4 pg (27.0-33.0); MEAN CORPUSCULAR VOLUME 92.1 fL (79-99); MONOCYTES % (AUTO) 6.1 % (3.0-13.0); NEUTROPHILS % (AUTO) 86.1 % (40.0-77.0); PLATELET COUNT (AUTO) 204 K/uL (130-400); RED BLOOD CELL COUNT(AUTO) 3.54 MIL/uL (4.50-6.20); RED CELL DISTRIBUTION WIDTH 12.2 % (11.0-15.5); WHITE BLOOD COUNT (AUTO) 6.3 K/uL (4.8-10.8)
[2020-02-15 07:10] LABS: ALBUMIN 2.1 g/dL (3.5-5.0); BILIRUBIN,TOTAL 0.8 mg/dL (0.2-1.0); CREATININE 1.4 mg/dL (0.5-1.5); POTASSIUM 3.9 mmol/L (3.5-5.1); TOTAL PROTEIN, SERUM 7.2 g/dL (6.0-8.3)
[2020-02-15 08:00] VITALS: BP 105/72
[2020-02-15] MEDS: AZITHROMYCIN 500MG+NS 250ML 250 ML IV SCH (08:53)
[2020-02-15] MEDS: LOSARTAN 50 MG TABLET PO SCH (08:54)
[2020-02-15] MEDS: ASPIRIN 81MG TAB.CHEW PO SCH (08:54)
[2020-02-15] MEDS: ZINC SULFATE 220 CAPSULE PO SCH (08:55)
[2020-02-15] MEDS: TAMSULOSIN HCL 0.4 MG CAP.ER.24H PO SCH (08:55)
[2020-02-15] MEDS: ISOSORBIDE MONO 60 MG TAB.SR PO SCH ×2 (08:55→21:49)
[2020-02-15] MEDS: SIMVASTATIN 20 MG TABLET PO SCH (08:55)
[2020-02-15] MEDS: ASCORBIC ACID 500 MG TAB PO SCH (08:55)
[2020-02-15] MEDS: SERTRALINE HCL 50 MG TABLET PO SCH (08:55)
[2020-02-15] MEDS: GABAPENTIN 300 MG CAPSULE PO SCH (08:55)
[2020-02-15] MEDS: FAMOTIDINE 20MG TAB 20 MG TAB PO SCH (08:55)
[2020-02-15] MEDS: GLYCOPYRROLATE IH SCH ×2 (09:00→20:12)
[2020-02-15] MEDS: FORMOTEROL FUM IH SCH ×2 (09:00→20:12)
[2020-02-15 11:00] VITALS: BP 137/69
--- NOTE | 2020-02-15 12:11 | NUR ---
Pt continue to pull pulse ox off. Changed position of pulse ox will continue to monitor.
[2020-02-15] MEDS ORDERED: DIAZEPAM 5 MG TABLET PO PRN (14:45)
[2020-02-15] MEDS ORDERED: METHYLPREDNISOLONE SOD SUCC 40MG/ML 1ML IVP SCH (14:45)
[2020-02-15 16:00] VITALS: BP 153/82
[2020-02-15] MEDS ORDERED: FUROSEMIDE 10 MG/ML 4ML VIAL IV SCH ×2 (16:00→21:00)
[2020-02-15] MEDS: METHYLPREDNISOLONE SOD SUCC 40MG/ML 1ML IVP SCH (16:23)
[2020-02-15 20:08] VITALS: BP 135/53
[2020-02-15] MEDS: FENOFIBRATE NANOCRYSTALLIZED 145 MG TAB PO SCH (21:49)
[2020-02-15] MEDS: ENOXAPARIN SODIUM 30 MG/0.3 ML SQ SCH (21:50)
[2020-02-15] MEDS: INSULIN GLARGINE 100 UNITS/ML 10 ML VIAL SQ SCH (21:51)
[2020-02-15] MEDS: FINASTERIDE 5 MG TABLET PO SCH (21:53)
[2020-02-16] VITALS (7 sets, daily range): BP systolic 122–157; BP diastolic 59–74
[2020-02-16 05:51] LABS: BASOPHILS % (AUTO) 0.2 % (0.0-5.0); HEMATOCRIT 32.2 % (42-54); LYMPHOCYTES % (AUTO) 6.1 % (21.0-51.0); MEAN CORPUSCULAR HGB CONC 33.2 g/dL (32.0-36.0); MEAN CORPUSCULAR VOLUME 93.3 fL (79-99); MONOCYTES % (AUTO) 5.9 % (3.0-13.0); NEUTROPHILS % (AUTO) 86.6 % (40.0-77.0); NUCLEATED RED BLOOD CELLS 0.3 % (0.0-0.19); PLATELET COUNT (AUTO) 206 K/uL (130-400); RED BLOOD CELL COUNT(AUTO) 3.45 MIL/uL (4.50-6.20); RED CELL DISTRIBUTION WIDTH 12.2 % (11.0-15.5); WHITE BLOOD COUNT (AUTO) 6.4 K/uL (4.8-10.8)
[2020-02-16] MEDS: HUMALOG PO SS2 SQ SCH ×5 (06:14→20:05)
[2020-02-16 06:27] LABS: BILIRUBIN,TOTAL 0.9 mg/dL (0.2-1.0); CREATININE 1.5 mg/dL (0.5-1.5); TOTAL PROTEIN, SERUM 7.7 g/dL (6.0-8.3)
[2020-02-16] MEDS: GLYCOPYRROLATE IH SCH ×2 (09:00→20:08)
[2020-02-16] MEDS: FORMOTEROL FUM IH SCH ×2 (09:00→20:08)
[2020-02-16] MEDS: AZITHROMYCIN 500MG+NS 250ML 250 ML IV SCH (09:10)
[2020-02-16] MEDS: SIMVASTATIN 20 MG TABLET PO SCH (09:10)
[2020-02-16] MEDS: ASPIRIN 81MG TAB.CHEW PO SCH (09:10)
[2020-02-16] MEDS: METHYLPREDNISOLONE SOD SUCC 40MG/ML 1ML IVP SCH (09:10)
[2020-02-16] MEDS: LOSARTAN 50 MG TABLET PO SCH (09:11)
[2020-02-16] MEDS: TAMSULOSIN HCL 0.4 MG CAP.ER.24H PO SCH (09:11)
[2020-02-16] MEDS: ZINC SULFATE 220 CAPSULE PO SCH (09:11)
[2020-02-16] MEDS: FAMOTIDINE 20MG TAB 20 MG TAB PO SCH (09:11)
[2020-02-16] MEDS: ASCORBIC ACID 500 MG TAB PO SCH (09:11)
[2020-02-16] MEDS: GABAPENTIN 300 MG CAPSULE PO SCH (09:11)
[2020-02-16] MEDS: ISOSORBIDE MONO 60 MG TAB.SR PO SCH ×2 (09:11→20:07)
[2020-02-16] MEDS: SERTRALINE HCL 50 MG TABLET PO SCH (09:12)
--- NOTE | 2020-02-16 15:26 | NUR ---
Dr. Griffith ordered bipap. Informed respiratory of order, no bipaps available at this time.
--- NOTE | 2020-02-16 17:02 | NUR ---
Called pt son Elgin to give update. Explaned MD ordered bipap and explained what bipap is and informed pt son of ordering of specialty bed pending. Pt son verbalized understanding. No questions at this time.
[2020-02-16] MEDS: INSULIN GLARGINE 100 UNITS/ML 10 ML VIAL SQ SCH (20:06)
[2020-02-16] MEDS: ENOXAPARIN SODIUM 30 MG/0.3 ML SQ SCH (20:06)
[2020-02-16] MEDS: FINASTERIDE 5 MG TABLET PO SCH (20:07)
[2020-02-16] MEDS: FENOFIBRATE NANOCRYSTALLIZED 145 MG TAB PO SCH (20:07)
--- NOTE | 2020-02-17 03:42 | NUR ---
02 SAT PT FEELS SHORT OF BREATH AND ATTEMPTING TO COUGH FREQUENTLY 02 SAT DECREASES FROM 92 TO 70S WHEN PT COUGHING. BIPAP REMAINS UNAVAILABLE IN HOSPITAL. RT IN TO SEE PATIENT AND APPLIED NC @ 10 L IN ADDITION TO THE NRB @15 L 02 SATS 95-97%.
[2020-02-17 03:54] VITALS: BP 153/75
[2020-02-17] MEDS: FORMOTEROL FUM IH SCH ×2 (07:33→21:00)
[2020-02-17] MEDS: GLYCOPYRROLATE IH SCH ×2 (07:33→21:00)
[2020-02-17 08:00] VITALS: BP 130/63
[2020-02-17] MEDS: FAMOTIDINE 20MG TAB 20 MG TAB PO SCH (08:59)
[2020-02-17] MEDS: SIMVASTATIN 20 MG TABLET PO SCH (08:59)
[2020-02-17] MEDS: GABAPENTIN 300 MG CAPSULE PO SCH (08:59)
[2020-02-17] MEDS: SERTRALINE HCL 50 MG TABLET PO SCH (09:00)
[2020-02-17] MEDS: ASPIRIN 81MG TAB.CHEW PO SCH (09:00)
[2020-02-17] MEDS: ZINC SULFATE 220 CAPSULE PO SCH (09:00)
[2020-02-17] MEDS: TAMSULOSIN HCL 0.4 MG CAP.ER.24H PO SCH (09:00)
[2020-02-17] MEDS: ISOSORBIDE MONO 60 MG TAB.SR PO SCH ×3 (09:00→21:00)
[2020-02-17] MEDS: LOSARTAN 50 MG TABLET PO SCH (09:00)
[2020-02-17] MEDS: ASCORBIC ACID 500 MG TAB PO SCH (09:00)
[2020-02-17] MEDS: METHYLPREDNISOLONE SOD SUCC 40MG/ML 1ML IVP SCH (09:01)
[2020-02-17] MEDS: AZITHROMYCIN 500MG+NS 250ML 250 ML IV SCH (09:01)
[2020-02-17] MEDS: HUMALOG PO SS2 SQ SCH ×4 (09:07→20:57)
--- NOTE | 2020-02-17 10:00 | NUR ---
Pt moaning in pain. Pain to back. Specialty bed ordered 02/16/20 no bed available at this time. Repositioned pt. Okay at this time. Will continue to monitor.
[2020-02-17 11:00] VITALS: BP 142/75
[2020-02-17 15:00] VITALS: BP 151/81
--- NOTE | 2020-02-17 16:16 | NUR ---
Crushed all AM meds that could be crushed and put in applesauce. Pt refused all meds.
[2020-02-17 20:37] VITALS: BP 119/63
[2020-02-17] MEDS: FENOFIBRATE NANOCRYSTALLIZED 145 MG TAB PO SCH ×2 (20:55→21:00)
[2020-02-17] MEDS: FINASTERIDE 5 MG TABLET PO SCH ×2 (20:55→21:00)
[2020-02-17] MEDS: INSULIN GLARGINE 100 UNITS/ML 10 ML VIAL SQ SCH (20:57)
[2020-02-17] MEDS: ENOXAPARIN SODIUM 30 MG/0.3 ML SQ SCH (20:58)
[2020-02-18] VITALS (7 sets, daily range): BP systolic 129–143; BP diastolic 63–75
[2020-02-18] MEDS: HUMALOG PO SS2 SQ SCH ×4 (06:11→20:46)
--- NOTE | 2020-02-18 06:41 | NUR ---
PM SHIFT SUMMARY PT REFUSED ALL PO MEDICATIONS THIS SHIFT. ON 15 L NRB 02 SAT RANGE FROM 91-96%. NOTED PT COUGHING WITH SIPS OF WATER, PT MADE NPO AND REQUEST FOR SPEECH EVAL PLACED. NO CHANGES FROM BASELINE SHIFT ASSESSMENT/ACUTE EVENTS OVERNIGHT.
[2020-02-18] MEDS: FORMOTEROL FUM IH SCH ×2 (07:30→21:00)
[2020-02-18] MEDS: GLYCOPYRROLATE IH SCH ×2 (07:30→21:00)
[2020-02-18] MEDS: AZITHROMYCIN 500MG+NS 250ML 250 ML IV SCH (08:47)
[2020-02-18] MEDS: ASPIRIN 81MG TAB.CHEW PO SCH (08:47)
[2020-02-18] MEDS: METHYLPREDNISOLONE SOD SUCC 40MG/ML 1ML IVP SCH (08:47)
[2020-02-18] MEDS: TAMSULOSIN HCL 0.4 MG CAP.ER.24H PO SCH (09:00)
[2020-02-18] MEDS: LOSARTAN 50 MG TABLET PO SCH (09:00)
[2020-02-18] MEDS: ISOSORBIDE MONO 60 MG TAB.SR PO SCH ×2 (09:00→21:00)
[2020-02-18] MEDS: SERTRALINE HCL 50 MG TABLET PO SCH (09:00)
[2020-02-18] MEDS: SIMVASTATIN 20 MG TABLET PO SCH (09:00)
[2020-02-18] MEDS: ASCORBIC ACID 500 MG TAB PO SCH (09:00)
[2020-02-18] MEDS: ZINC SULFATE 220 CAPSULE PO SCH (09:00)
[2020-02-18] MEDS: GABAPENTIN 300 MG CAPSULE PO SCH (09:00)
[2020-02-18] MEDS: FAMOTIDINE 20MG TAB 20 MG TAB PO SCH (09:00)
--- NOTE | 2020-02-18 12:58 | NUR ---
RECOMMEND NPO, SHORT TERM ALTERNATE MEANS OF NUTRITION/HYDRATION. Pt RAISED TO 90 DEGREES IN BED BY COMPUTER INSTALLATION ENGINEER WITH SPO2 DROPPING TO 83% WITH OBVIOUS DYSPNEA. Pt STATED HE COULD TOLERATE P.O. AT THIS TIME. COMPUTER INSTALLATION ENGINEER RECLINED BED TO 45 DEGREES AND Pt RECOVERED TO 88%SPO2. NURSE MARCEL NOTIFIED. Pt HIS AT HIGH RISK FOR ASPIRATION AT THIS TIME. NG TUBE IS RECOMMENDED. Addendum: 02/18/20 at 1302 by JONG STYLES, [facility] Amended: Links added.
--- NOTE | 2020-02-18 14:47 | NUR ---
RDSCREEN - LOS X 8 Pt admitted with ARF, Hypoxia. Pt s/p FORMING MACHINE UPKEEP MECHANIC HELPER;NPO, short term alternate means nutrition recommended. Pending NGT placement. Recommend continuous Vital High Protein tube feeding initiated at 15mls/hr. Goal rate 40mls/hr. Recommend Flushes at 125ml Q6hrs. Fax line busy, pending Tube feeding recommendations to be faxed to floor. RN to be notified. NUTRITION NOTE: Pt with poor PO intake, +S/S aspiration as per ST. Elevated BG (200). Alb 2.0. Pt with Obesity Class II. PMH CKD III, DM, COPD. RD to continue to monitor. Please notify as additional nutrition concerns arise. Thank you.
--- NOTE | 2020-02-18 16:39 | NUR ---
Assisted tech to change pt. Turned to right side. Pt spoke with son over the phone. Pt refusing to eat at this time and chokes on liquids. Per speech evaluation pt desaturates to 80's when NRB removed and NG tube recommended for nutrition. Pt refuse NG tube. Pt spoke with family over zoom this morning, JUDIE Garcia at bedside pt request to go home on hospice. Informed spring encaser and VALLEZ FILTER OPERATOR Caryn.
--- NOTE | 2020-02-18 17:46 | NUR ---
Pt refused 1630 insulin coverage. BS 231 10 units.
[2020-02-18] MEDS: ENOXAPARIN SODIUM 30 MG/0.3 ML SQ SCH (20:44)
[2020-02-18] MEDS: INSULIN GLARGINE 100 UNITS/ML 10 ML VIAL SQ SCH (20:45)
[2020-02-18] MEDS: FENOFIBRATE NANOCRYSTALLIZED 145 MG TAB PO SCH (21:00)
[2020-02-18] MEDS: FINASTERIDE 5 MG TABLET PO SCH (21:00)
[2020-02-19 04:05] VITALS: BP 131/82
[2020-02-19 04:07] LABS: ABG HCO3 27.3 mmol/L (21.0-28.0); ABG OXYGEN SATURATION 88.7 % (95.0-99.0); ABG PCO2 40 mmHg (35-48)
--- NOTE | 2020-02-19 05:32 | NUR ---
PM SHIFT SUMMARY PT A & 0 X3 ABLE TO MAKE NEEDS KNOW. REFUSED ALL PO MEDICATIONS. ON NRB @ 15L 02 SAT 92-96% WHILE ASLEEP PT APPEARS SOMEWHAT ANXIOUS AT TIMES WHEN HE WAKES UP AND 02 SAT WILL DROP TO 85 PT COACHED TO RELAX AND 02 SAT WILL RETURN TO 92% ALMOST IMMEDIATELY. NO CHANGES FROM BASELINE SHIFT ASSESSMENT/ACUTE EVENTS OVERNIGHT.
[2020-02-19] MEDS: HUMALOG PO SS2 SQ SCH ×4 (05:41→21:00)
[2020-02-19 06:32] LABS: BASOPHILS % (AUTO) 0.1 % (0.0-5.0); EOSINOPHILS % (AUTO) 0.2 % (0.0-8.0); HEMATOCRIT 38.9 % (42-54); LYMPHOCYTES % (AUTO) 5.2 % (21.0-51.0); MEAN CORPUSCULAR HGB CONC 32.1 g/dL (32.0-36.0); MEAN CORPUSCULAR VOLUME 96.5 fL (79-99); MONOCYTES % (AUTO) 3.9 % (3.0-13.0); NEUTROPHILS % (AUTO) 89.9 % (40.0-77.0); PLATELET COUNT (AUTO) 210 K/uL (130-400); RED BLOOD CELL COUNT(AUTO) 4.03 MIL/uL (4.50-6.20); RED CELL DISTRIBUTION WIDTH 12.6 % (11.0-15.5); WHITE BLOOD COUNT (AUTO) 10.6 K/uL (4.8-10.8)
[2020-02-19 06:45] LABS: ALBUMIN 1.7 g/dL (3.5-5.0); BILIRUBIN,TOTAL 0.8 mg/dL (0.2-1.0); CREATININE 1.4 mg/dL (0.5-1.5); POTASSIUM 3.6 mmol/L (3.5-5.1)
[2020-02-19 08:38] VITALS: BP 132/51
[2020-02-19] MEDS: FAMOTIDINE 20MG TAB 20 MG TAB PO SCH (09:00)
[2020-02-19] MEDS: ISOSORBIDE MONO 60 MG TAB.SR PO SCH ×2 (09:00→21:00)
[2020-02-19] MEDS: FORMOTEROL FUM IH SCH ×2 (09:00→21:00)
[2020-02-19] MEDS: GABAPENTIN 300 MG CAPSULE PO SCH (09:00)
[2020-02-19] MEDS: ASCORBIC ACID 500 MG TAB PO SCH (09:00)
[2020-02-19] MEDS: GLYCOPYRROLATE IH SCH ×2 (09:00→21:00)
[2020-02-19] MEDS: ZINC SULFATE 220 CAPSULE PO SCH (09:00)
[2020-02-19] MEDS: AZITHROMYCIN 500MG+NS 250ML 250 ML IV SCH (09:12)
[2020-02-19] MEDS: METHYLPREDNISOLONE SOD SUCC 40MG/ML 1ML IVP SCH (09:13)
--- NOTE | 2020-02-19 09:17 | NUR ---
RD UPDATE Pt with NRB @15 O2 Sat 92-96% Per RN note. Pt refusal of NGT. Pt requesting to go home with hospice, CM notified per RN note. RD to continue to monitor. Please notify as additional nutrition concerns arise. Thank you.
[2020-02-19] MEDS: SERTRALINE HCL 50 MG TABLET PO SCH (09:28)
[2020-02-19] MEDS: ASPIRIN 81MG TAB.CHEW PO SCH (09:28)
[2020-02-19] MEDS: LOSARTAN 50 MG TABLET PO SCH (09:28)
[2020-02-19] MEDS: TAMSULOSIN HCL 0.4 MG CAP.ER.24H PO SCH (09:28)
[2020-02-19] MEDS: SIMVASTATIN 20 MG TABLET PO SCH (09:30)
[2020-02-19] MEDS ORDERED: LABETALOL HCL 5 MG/ML 20ML VIAL IV SCH (09:56)
--- NOTE | 2020-02-19 10:30 | NUR ---
Pt resting in bed. HR increased to 119. Assess leads, heart monitor off. Reconnect called tele pt ST. Pt denies any chest pain. Reported to SUZETTE Rubin, Stat EKG ordered. Labetalol 10mg q6h. Blood pressure 133/65 HR 110 prior to administration of medication HR 89 after. Will continue to monitor.
[2020-02-19] MEDS: LABETALOL HCL 5 MG/ML 20ML VIAL IV SCH ×3 (12:00→23:58)
[2020-02-19 12:31] VITALS: BP 92/55
[2020-02-19] MEDS ORDERED: BISACODYL 10 MG SUPP.RECT RC PRN (14:00)
--- NOTE | 2020-02-19 15:28 | NUR ---
SUZETTE Rubin went in to explain DNR form to pt and pt only replying with bottom hurting and wanting to go home. Form was not signed. Informed field case manager Roseline of pt wish to go home on hospice. Family aware of pt wishes at this time.
[2020-02-19 16:31] VITALS: BP 140/68
[2020-02-19 20:05] VITALS: BP 134/63
[2020-02-19] MEDS: INSULIN GLARGINE 100 UNITS/ML 10 ML VIAL SQ SCH (21:00)
[2020-02-19] MEDS: FENOFIBRATE NANOCRYSTALLIZED 145 MG TAB PO SCH (21:00)
[2020-02-19] MEDS: FINASTERIDE 5 MG TABLET PO SCH (21:00)
[2020-02-19] MEDS: ENOXAPARIN SODIUM 30 MG/0.3 ML SQ SCH (21:00)
[2020-02-19 23:53] VITALS: BP 143/69
[2020-02-20 03:52] VITALS: BP 126/63
[2020-02-20] MEDS: LABETALOL HCL 5 MG/ML 20ML VIAL IV SCH (05:32)
[2020-02-20] MEDS: HUMALOG PO SS2 SQ SCH ×4 (05:33→20:35)
[2020-02-20 06:05] LABS: BASOPHILS % (AUTO) 0.2 % (0.0-5.0); HEMATOCRIT 38.7 % (42-54); LYMPHOCYTES % (AUTO) 4.7 % (21.0-51.0); MEAN CORPUSCULAR HEMOGLOBIN 30.8 pg (27.0-33.0); MEAN CORPUSCULAR HGB CONC 31.3 g/dL (32.0-36.0); MEAN CORPUSCULAR VOLUME 98.5 fL (79-99); MONOCYTES % (AUTO) 3.7 % (3.0-13.0); NEUTROPHILS % (AUTO) 90.7 % (40.0-77.0); PLATELET COUNT (AUTO) 165 K/uL (130-400); RED BLOOD CELL COUNT(AUTO) 3.93 MIL/uL (4.50-6.20); RED CELL DISTRIBUTION WIDTH 12.8 % (11.0-15.5); WHITE BLOOD COUNT (AUTO) 10.1 K/uL (4.8-10.8)
[2020-02-20] MEDS ORDERED: LABETALOL HCL 5 MG/ML 20ML VIAL IV PRN (07:15)
[2020-02-20] MEDS: GLYCOPYRROLATE IH SCH ×2 (07:24→20:36)
[2020-02-20] MEDS: FORMOTEROL FUM IH SCH ×2 (07:24→20:36)
[2020-02-20 08:15] VITALS: BP 119/84
[2020-02-20] MEDS: SIMVASTATIN 20 MG TABLET PO SCH (09:00)
[2020-02-20] MEDS: FAMOTIDINE 20MG TAB 20 MG TAB PO SCH (09:00)
[2020-02-20] MEDS: ASPIRIN 81MG TAB.CHEW PO SCH (09:00)
[2020-02-20] MEDS: ISOSORBIDE MONO 60 MG TAB.SR PO SCH ×2 (09:00→20:36)
[2020-02-20] MEDS: GABAPENTIN 300 MG CAPSULE PO SCH (09:00)
[2020-02-20] MEDS: LOSARTAN 50 MG TABLET PO SCH (09:00)
[2020-02-20] MEDS: TAMSULOSIN HCL 0.4 MG CAP.ER.24H PO SCH (09:00)
[2020-02-20] MEDS: SERTRALINE HCL 50 MG TABLET PO SCH (09:00)
[2020-02-20] MEDS: ZINC SULFATE 220 CAPSULE PO SCH (09:00)
[2020-02-20] MEDS: ASCORBIC ACID 500 MG TAB PO SCH (09:00)
[2020-02-20] MEDS: AZITHROMYCIN 500MG+NS 250ML 250 ML IV SCH (09:43)
[2020-02-20] MEDS: METHYLPREDNISOLONE SOD SUCC 40MG/ML 1ML IVP SCH (09:43)
[2020-02-20] MEDS: DEXTROSE 5%-WATER 1,000 ML IV SCH (10:30)
[2020-02-20 11:52] VITALS: BP 116/92
[2020-02-20 15:19] LABS: ABG BASE EXCESS -2.7 mmol/L (-2.0-3.0); ABG HCO3 21.8 mmol/L (21.0-28.0); ABG OXYGEN SATURATION 80.3 % (95.0-99.0); ABG PCO2 37 mmHg (35-48)
[2020-02-20] MEDS ORDERED: SODIUM BICARB 50MEQ 50ML VIAL IV SCH (15:30)
--- NOTE | 2020-02-20 18:17 | NUR ---
NRB at 15lpm, and NC@6lpm sating 88%. Pt refused gown, vitals, blood sugar checks. Continues to remove tele. Reoriented. Will continue to monitor.
[2020-02-20 20:32] VITALS: BP 139/92
[2020-02-20] MEDS: FINASTERIDE 5 MG TABLET PO SCH (20:36)
[2020-02-20] MEDS: INSULIN GLARGINE 100 UNITS/ML 10 ML VIAL SQ SCH (20:36)
[2020-02-20] MEDS: ENOXAPARIN SODIUM 30 MG/0.3 ML SQ SCH (20:37)
[2020-02-20] MEDS: FENOFIBRATE NANOCRYSTALLIZED 145 MG TAB PO SCH (20:37)
--- NOTE | 2020-02-20 20:45 | NUR ---
ASSESSMENT SHIFT ASSESSMENT COMPLETED UNABLE TO ASSESS ORIENTATION PT WILL OPEN EYES TO NAME AND TACTILE STIMULATION BUT SHAKES HEAD AND CLOSES EYES ALMOST IMMEDIATELY AFTER. 02 NRB @15 L ON AND NC ON @ 8 L 02 SAT 94-96% NC LOWERED DOWN TO 3 L. ADMINISTERED INSULIN COVERAGE FOR BLOOD SUGAR. PT REFUSED ALL OTHER MEDICATIONS. 1:1 AT BEDSIDE.
[2020-02-20 23:41] VITALS: BP 126/76
[2020-02-21 03:58] VITALS: BP 139/68
[2020-02-21 04:53] LABS: ABG BASE EXCESS 6.5 mmol/L (-2.0-3.0); ABG HCO3 30.8 mmol/L (21.0-28.0); ABG OXYGEN SATURATION 87.6 % (95.0-99.0); ABG PCO2 43 mmHg (35-48)
[2020-02-21] MEDS: DEXTROSE 5%-WATER 1,000 ML IV SCH ×2 (05:42→16:39)
[2020-02-21] MEDS: HUMALOG PO SS2 SQ SCH ×4 (05:55→20:53)
[2020-02-21 06:53] LABS: BASOPHILS % (AUTO) 0.1 % (0.0-5.0); HEMATOCRIT 41.2 % (42-54); LYMPHOCYTES % (AUTO) 5.6 % (21.0-51.0); MEAN CORPUSCULAR HGB CONC 31.1 g/dL (32.0-36.0); MEAN CORPUSCULAR VOLUME 99.8 fL (79-99); MONOCYTES % (AUTO) 3.6 % (3.0-13.0); NUCLEATED RED BLOOD CELLS 0.2 % (0.0-0.19); PLATELET COUNT (AUTO) 167 K/uL (130-400); RED BLOOD CELL COUNT(AUTO) 4.13 MIL/uL (4.50-6.20); RED CELL DISTRIBUTION WIDTH 13.1 % (11.0-15.5); WHITE BLOOD COUNT (AUTO) 12.3 K/uL (4.8-10.8)
[2020-02-21 07:24] LABS: BILIRUBIN,TOTAL 0.7 mg/dL (0.2-1.0); POTASSIUM 3.6 mmol/L (3.5-5.1); TOTAL PROTEIN, SERUM 7.5 g/dL (6.0-8.3)
[2020-02-21 07:39] LABS: ALBUMIN 1.6 g/dL (3.5-5.0); CREATININE 1.9 mg/dL (0.5-1.5)
[2020-02-21] MEDS ORDERED: DEXTROSE 5%-WATER 250 ML IV STA (07:59)
[2020-02-21 08:00] VITALS: BP 125/86
[2020-02-21] MEDS: GLYCOPYRROLATE IH SCH ×2 (08:04→20:55)
[2020-02-21] MEDS: FORMOTEROL FUM IH SCH ×2 (08:04→20:55)
--- NOTE | 2020-02-21 08:04 | NUR ---
Reported critical lab Sodium 161, chloride 122, BUN 92 to SUZETTE Rubin. Received orders to give 250ml/bolus of D5W and change rate from 50ml/hr to 75ml/hr.
[2020-02-21] MEDS: METHYLPREDNISOLONE SOD SUCC 40MG/ML 1ML IVP SCH (08:54)
[2020-02-21] MEDS: ASPIRIN 81MG TAB.CHEW PO SCH (09:00)
[2020-02-21] MEDS: ASCORBIC ACID 500 MG TAB PO SCH (09:00)
[2020-02-21] MEDS: TAMSULOSIN HCL 0.4 MG CAP.ER.24H PO SCH (09:00)
[2020-02-21] MEDS: ZINC SULFATE 220 CAPSULE PO SCH (09:00)
[2020-02-21] MEDS: ISOSORBIDE MONO 60 MG TAB.SR PO SCH ×2 (09:00→20:51)
[2020-02-21] MEDS: SERTRALINE HCL 50 MG TABLET PO SCH (09:00)
[2020-02-21] MEDS: GABAPENTIN 300 MG CAPSULE PO SCH (09:00)
[2020-02-21] MEDS: LOSARTAN 50 MG TABLET PO SCH (09:00)
[2020-02-21] MEDS: FAMOTIDINE 20MG TAB 20 MG TAB PO SCH (09:00)
[2020-02-21] MEDS: SIMVASTATIN 20 MG TABLET PO SCH (09:00)
[2020-02-21 12:00] VITALS: BP 100/54
[2020-02-21 12:49] VITALS: BP 129/71
[2020-02-21 13:33] LABS: CREATININE 1.7 mg/dL (0.5-1.5); POTASSIUM 3.5 mmol/L (3.5-5.1)
--- NOTE | 2020-02-21 13:40 | NUR ---
Critical lab called for Sodium 162, Chloride 121, BUN 92, Creat. 1.7. Notified SUZETTE Rubin. No orders received. Consult with nephrology contacted Jammie, who is rounding at this time and will see pt today.
--- NOTE | 2020-02-21 15:26 | NUR ---
Measured and inserted NG tube to left nostril. Pt desat to 74%. Placed NRB back on pt and saturation return to 92%. Pt tolerated well. In and out catheter for urine specimen collection. Will start free water once KUB is completed for NG tube placement verification.
[2020-02-21 15:32] LABS: CREATININE,URINE RANDOM 123 mg/dL (30-135); SODIUM,URINE RANDOM 20 mmol/l (40-220)
[2020-02-21] MEDS ORDERED: HALOPERIDOL LACTATE 5 MG/ML VIAL IM PRN (15:45)
--- NOTE | 2020-02-21 17:00 | NUR ---
Gave 300ml free water through NGT. Pt tolerated well. No s/s of distress noted.
[2020-02-21 18:31] VITALS: BP 137/78
[2020-02-21] MEDS: FENOFIBRATE NANOCRYSTALLIZED 145 MG TAB PO SCH (20:51)
[2020-02-21] MEDS: FINASTERIDE 5 MG TABLET PO SCH (20:51)
[2020-02-21] MEDS: ENOXAPARIN SODIUM 30 MG/0.3 ML SQ SCH (20:52)
[2020-02-21] MEDS: INSULIN GLARGINE 100 UNITS/ML 10 ML VIAL SQ SCH (20:54)
[2020-02-21 21:00] VITALS: BP 112/50
[2020-02-22 04:24] LABS: ABG BASE EXCESS 3.3 mmol/L (-2.0-3.0); ABG HCO3 26.4 mmol/L (21.0-28.0); ABG OXYGEN SATURATION 81.7 % (95.0-99.0); ABG PCO2 36 mmHg (35-48)
[2020-02-22] MEDS ORDERED: ROCURONIUM 10MG/1ML SYR 10 MG/ML ML ONE (04:45)
[2020-02-22] MEDS ORDERED: PROPOFOL 10 MG/ML 20ML VIAL IV ONE (04:45)
[2020-02-22] MEDS ORDERED: FUROSEMIDE 10 MG/ML 4ML VIAL ONE ×2 (04:55→05:26)
[2020-02-22] MEDS ORDERED: FUROSEMIDE 10 MG/ML 4ML VIAL IV SCH (05:00)
--- NOTE | 2020-02-22 05:00 | NUR ---
ABG RESULT. ABGS RESULTS CALLED INTO [facility]. KEAGAN BOWIE AWARE. NEW ORDERS RECEIVED FOR LASIX 40MG IV X ONE DOSE. MEDICATION GIVEN PER ORDERS. NEW IV STARTED TO LEFT HAND MIDDLE DIGIT USING CLEAN TECHNIQUE. D5W INFUSING AT KVO. HIGH FLOW O2 ON. O2 SAT AT 90% AT THIS TIME. TOTAL CARE RENDERED. REPOSITIONED FOR COMFORT. HOB ELEVATED. CALL LIGHT WITHIN REACH. WILL CONTINUE TO BE OBSERVED CLOSELY. Addendum: 02/22/20 at 0652 by MICAELA VEE RN RN Amended: Links added.
[2020-02-22 05:01] VITALS: BP 126/54
[2020-02-22] MEDS: HUMALOG PO SS2 SQ SCH (05:42)
[2020-02-22] MEDS: DEXTROSE 5%-WATER 1,000 ML IV SCH (05:42)
[2020-02-22 06:06] LABS: BASOPHILS % (AUTO) 0.2 % (0.0-5.0); EOSINOPHILS % (AUTO) 0.1 % (0.0-8.0); HEMATOCRIT 46.7 % (42-54); LYMPHOCYTES % (AUTO) 4.2 % (21.0-51.0); MEAN CORPUSCULAR HEMOGLOBIN 31.1 pg (27.0-33.0); MEAN CORPUSCULAR HGB CONC 30.4 g/dL (32.0-36.0); MEAN CORPUSCULAR VOLUME 102.2 fL (79-99); MONOCYTES % (AUTO) 2.8 % (3.0-13.0); NEUTROPHILS % (AUTO) 91.9 % (40.0-77.0); NUCLEATED RED BLOOD CELLS 0.3 % (0.0-0.19); PLATELET COUNT (AUTO) 179 K/uL (130-400); RED BLOOD CELL COUNT(AUTO) 4.57 MIL/uL (4.50-6.20); WHITE BLOOD COUNT (AUTO) 17.2 K/uL (4.8-10.8)
[2020-02-22 06:37] LABS: ALBUMIN 1.6 g/dL (3.5-5.0); BILIRUBIN,TOTAL 1.3 mg/dL (0.2-1.0); CREATININE 1.9 mg/dL (0.5-1.5); MAGNESIUM 3.5 mg/dL (1.80-2.40); PHOSPHORUS 4.5 mg/dL (2.5-4.9); POTASSIUM 3.7 mmol/L (3.5-5.1); TOTAL PROTEIN, SERUM 7.8 g/dL (6.0-8.3); URIC ACID 13.6 mg/dL (2.6-7.2)
[2020-02-22 08:00] VITALS: BP 98/56
[2020-02-22] MEDS ORDERED: THIAMINE HCL 100 MG/ML 2ML VIAL IVP SCH (09:00)
[2020-02-22] MEDS ORDERED: FENTANYL 2500MCG+NS 250ML 250 ML IV PRN (09:30)
[2020-02-22] MEDS ORDERED: FENTANYL CITRATE PF 50 MCG/1 ML 2ML VIAL IVP PRN (09:30)
[2020-02-22] MEDS ORDERED: MIDAZOLAM HCL 1 MG/ML 2ML VIAL IV PRN (09:30)
[2020-02-22] MEDS ORDERED: NOREPINEPHRINE 4MG/NS 250ML 250 ML IV PRN (09:30)
--- NOTE | 2020-02-22 10:37 | NUR ---
SHIFT REPORT GIVEN . PATIENT WAS ON HIGH FLOW AND NONE REBREATHER MASK WITH OXYGEN SATURATION IN 80'S. PATIENT HAS A ONE TO ONE SITTER. AT 0910 PATIENT HAD AN OXYGEN SATURATION OF 79%. THIS NURSE ENTERED ROOM AND READJUSTED PATIENT. PATIENT APPEARED UNRESPONSIVE AND THIS NURSED USED STERNAL RUB METHOD WITH NO RESPONSE. KEVIN BOGGS CALLED AT 0910. SEE CODE BLUE FORM FOR DETAILS.
== END 2020-02-22 10:00 | disposition expired | DRG 177 ==
LOC: EDH 20:20 → EDHIP 22:52 → OBSVTOIN 22:52 → INTOOBSV 22:52 → OBSVTOIN 22:58 → 2CV 02-13 17:21 → 2DH 02-15 01:23
PROVIDERS: ADMIT Internal Medicine Critical Care Medicine; ATTEND Internal Medicine Critical Care Medicine
PROC: 0BH17EZ Insertion of Endotracheal Airway into Trachea, Via Natural or Artificial Opening (ICD-10-PCS; principal; 2020-02-10)
DX: U07.1 COVID-19 (principal); J12.89 Other viral pneumonia; G93.41 Metabolic encephalopathy; J96.01 Acute respiratory failure with hypoxia; J44.1 Chronic obstructive pulmonary disease with (acute) exacerbation; E44.0 Moderate protein-calorie malnutrition; N17.9 Acute kidney failure, unspecified; E87.0 Hyperosmolality and hypernatremia; E86.0 Dehydration; R13.10 Dysphagia, unspecified; R53.81 Other malaise; Z66 Do not resuscitate; I12.9 Hypertensive chronic kidney disease with stage 1 through stage 4 chronic kidney disease, or unspecified chronic kidney disease; E11.22 Type 2 diabetes mellitus with diabetic chronic kidney disease; N18.3 Chronic kidney disease, stage 3 (moderate); E66.01 Morbid (severe) obesity due to excess calories; Z68.37 Body mass index [BMI] 37.0-37.9, adult; Z79.82 Long term (current) use of aspirin; Z86.74 Personal history of sudden cardiac arrest; Z87.891 Personal history of nicotine dependence; Z91.19 Patient's noncompliance with other medical treatment and regimen; Z79.899 Other long term (current) drug therapy
CPT/HCPCS: 31500; 36415; 36600; 71045; 74018; 80048; 80053; 81001; 82435; 82550; 82570; 82728; 82803; 82947; 82948; 83036; 83605; 83615; 83735; 83874; 84100; 84132; 84145; 84295; 84300; 84484; 84550; 85018; 85025; 85378; 85384; 85610; 85730; 86140; 86900; 86901; 87040; 87088; 92950; 93005; 94002; 99291; A4344; G0378; J0456; J0696; J1100; J1650; J1940; J2405; J2704; J2920; J3490; J7030; J7060; J7070; U0003